=== PATIENT | female | born 1945 | race Caucasian/White ===

== ENCOUNTER 2019-04-03 17:45 | Emergency (ER) | payer OTHER ==
[~2019-04-03] VITALS: Ht 162.6 cm; Wt 54.4 kg
[~2019-04-03 17:45] MED LIST: LEVOTHYROXINE50 MCG PO
--- OUTSIDE RECORDS SUMMARY | 2019-04-03 17:48 | XMS REPORT ---
Author Author [facility] Address Unknown Phone Unavailable Care Team Providers Care Membership Sales Manager Name Role Phone Unavailable Unavailable Payers Payer Name Policy Type Policy Number Effective Date Expiration Date Problems This patient has no known problems. Allergies, Adverse Reactions, Alerts Allergy Name Allergy Type Status Severity Reaction(s) Onset Date Inactive Date Treating Clinician Comments No Known Allergies DA Active U 2019-03-28 00:00:00 Medications This patient has no known medications. Results Test Description Test Time Test Comments Text Results Atomic Results Result Comments BASIC METABOLIC PANEL 2019-03-28 17:23:00 SODIUM (test code=NA) 142 mmol/L 136-145 POTASSIUM (test code=K) 3.9 mmol/L 3.5-5.1 CHLORIDE (test code=CL) 105 mmol/L 101-109 CARBON DIOXIDE (test code=CO2) 28.2 mmol/L 21-32 ANION GAP (test code=GAP) 13 mmol/L 10-20 GLUCOSE (test code=GLU) 89 mg/dL 74-106 BLOOD UREA NITROGEN (test code=BUN) 9 mg/dL 3-21 GLOMERULAR FILTRATION RATE (test code=GFR) 60 mL/min >=60 Estimated GFR by using Modified MDRD formula.Chronic kidney disease is defined as either kidney damageor GFR <60 mL/min/1.73 m2 for >3 months. CREATININE (test code=CREAT) 0.92 mg/dL 0.55-1.3 BUN/CREATININE RATIO (test code=BUN/CREA) 9.8 10-20 CALCIUM (test code=CA) 8.8 mg/dL 8.4-10.2 HEPATIC FUNCTION [id number] 17:23:00* Test Item Value Reference Range Comments TOTAL PROTEIN (test code=PROT) 7.5 g/dL 6.5-8.4 ALBUMIN (test code=ALB) 3.8 g/dL 3.4-4.8 GLOBULIN (test code=GLOB) 3.7 G/DL 1-10 ALBUMIN/GLOBULIN RATIO (test code=A/G) 1.03 RATIO 0.75-1.50 BILIRUBIN TOTAL (test code=BILT) 0.30 mg/dL 0.0-1.0 BILIRUBIN DIRECT (test code=BILD) 0.10 mg/dL 0.0-0.30 SGOT/AST (test code=AST) 22 U/L 6-32 SGPT/ALT (test code=ALT) 22 U/L 12-78 Note: Change in REFERENCE RANGE due to new reagent method. ALKALINE PHOSPHATASE TOTAL (test code=ALKP) 75 U/L 38-126 [id number] 17:23:00* Test Item Value Reference Range Comments LIPASE (test code=LIP) 285 U/L 128-270 [id number] 17:23:00* Test Item Value Reference Range Comments TROPONIN-I (test code=TROPI) <0.015 ng/mL 0.00-0.056 B-TYPE NATRIURETIC [id number] 17:19:00* Test Item Value Reference Range Comments B-TYPE NATRIURETIC PEPTIDE (test code=BNP) 110 pg/mL 0-100 BASIC METABOLIC [id number] 17:15:00* Test Item Value Reference Range Comments SODIUM (test code=NA) 142 mmol/L 136-145 POTASSIUM (test code=K) 3.9 mmol/L 3.5-5.1 CHLORIDE (test code=CL) 105 mmol/L 101-109 CARBON DIOXIDE (test code=CO2) 28.2 mmol/L 21-32 ANION GAP (test code=GAP) 13 mmol/L 10-20 GLUCOSE (test code=GLU) 89 mg/dL 74-106 BLOOD UREA NITROGEN (test code=BUN) 9 mg/dL 3-21 GLOMERULAR FILTRATION RATE (test code=GFR) 60 mL/min >=60 Estimated GFR by using Modified MDRD formula.Chronic kidney disease is defined as either kidney damageor GFR <60 mL/min/1.73 m2 for >3 months. CREATININE (test code=CREAT) 0.92 mg/dL 0.55-1.3 BUN/CREATININE RATIO (test code=BUN/CREA) 9.8 10-20 CALCIUM (test code=CA) 8.8 mg/dL 8.4-10.2 HEPATIC FUNCTION [id number] 17:15:00* Test Item Value Reference Range Comments TOTAL PROTEIN (test code=PROT) gram/dL 6.4-8.2 ALBUMIN (test code=ALB) g/dL 3.4-5.0 GLOBULIN (test code=GLOB) g/dL 2.7-4.2 ALBUMIN/GLOBULIN RATIO (test code=A/G) 0.75-1.50 BILIRUBIN TOTAL (test code=BILT) mg/dL 0.2-1.2 BILIRUBIN DIRECT (test code=BILD) mg/dL 0.0-0.20 SGOT/AST (test code=AST) IUnit/L 15-37 SGPT/ALT (test code=ALT) U/L 10-69 ALKALINE PHOSPHATASE TOTAL (test code=ALKP) IUnit/L 45-117 [id number] 17:15:00* Test Item Value Reference Range Comments LIPASE (test code=LIP) Unit/L 144-286 [id number] 17:15:00* Test Item Value Reference Range Comments TROPONIN-I (test code=TROPI) ng/mL 0-0.045 - XR CHEST 2 [id number] 17:06:00 Name: EDDI CAMPBELL [facility] : 1945 Age/S:74 /F [address] [facility] Unit#:[id number] Loc: [place] [address] Phys: Cuong Barth MD Dis Date: PHONE #: [phone] Status: PRE ER FAX #: [phone] Exam Date: 03/28/2019 Reason: CHEST PAIN EXAMS: CPT CODE: [id number] XR CHEST 2 V 38879 HISTORY: Chest pain. COMPARISON: None available. AP and lateral view of the chest: No acute infiltrates, effusion or congestion. Mild bullous changes in the upper lobes. Cardiac and the mediastinal silhouette are normal. IMPRESSION: No acute infiltrates, effusion or congestion. at 1706 Reported and signed by: Derik Merchant M.D. CC: Cuong Barth MD Technologist: CORNELIUS GUERRERO, RT(R),CT Trnscrpt Data: 03/28/2019 (1706) [email or web address] Orig Print D/T: S: 03/28/2019 (1929) PAGE 1 Signed Report CBC W/O [id number] 17:04:00* Test Item Value Reference Range Comments WHITE BLOOD CELL (test code=WBC) 7.9 K/mm3 4.5-12.5 RED BLOOD CELL (test code=RBC) 4.42 mill/mm3 3.7-5.2 HEMOGLOBIN (test code=HGB) 12.8 gram/dL 11.5-15.5 HEMATOCRIT (test code=HCT) 39.5 % 36.0-46.0 MEAN CELL VOLUME (test code=MCV) 89.4 fL 80-98 MEAN CELL HGB (test code=MCH) 29.0 picogram 27.0-33.0 MEAN CELL HGB CONCETRATION (test code=MCHC) 32.4 gram/dL 33.0-36.0 RED CELL DISTRIBUTION WIDTH (test code=RDW) 13.0 % 11.6-16.2 RED CELL DISTRIBUTION WIDTH SD (test code=RDW-SD) 43.5 fL 37.0-51.0 PLATELET COUNT (test code=PLT) 289 K/mm3 150-450 MEAN PLATELET VOLUME (test code=MPV) 10.1 fL 6.7-11.0 SCR MAMM BILATERAL ERICA CAD [id number] 14:05:43 - SCR MAMM BILATERAL ERICA CAD DIGITALBILATERAL DIGITAL SCREENING MAMMOGRAM 3D/2D WITH CAD: 08/16/2018CLINICAL: Asymptomatic. Digital breast tomosynthesis was performed in addition to routine CC and MLO views. Current mammographic images were evaluated by either a [employer] M-Vu or a e(ye)BRAIN ImageChecker CAD (computer aided detection system). Comparison is made to exams dated 08/12/2017 mammogram, 08/10/2016 mammogram, and 07/26/2015 mammogram - [facility]. T he tissue of both breasts is heterogeneously dense. This may lower the sensitivi ty of mammography. No suspicious mass, architectural distortion, malignant type calcification, or lymph node abnormality detected. Breast architecture is stab le compared to prior exams.IMPRESSION: NEGATIVEThere is no mammographic evidence of malignancy. Resume annual screening mammography in one year. Vernon ashby M.D. ss/penrad:08/19/2018 14:05:43 Rubber Liner: [place] SHRESTHA, [facility] sent: BIRADS 1-2 Normal Mammogram BI-RADS: 1 Negative
--- NOTE | 2019-04-03 18:00 | NUR ---
DR GALICIA AT BEDSIDE FOR RE-EVAL AND DISCUSSING THE CURRENT PLAN OF CARE WITH PATIENT AND FAMILY, VERBALIZED UNDERSTANDING. PATIENT TO BE TRANSFERRED FOR HIGHER LEVEL FOR NEUROSURGERY AND BE TRANSFERRED VIA [facility].
--- NOTE | 2019-04-03 18:06 | NUR ---
INITIATED TRANSFER TO [facility] FOR A HIGHER LEVEL OF CARE, SPOKE WITH SARINA COREAS.
[2019-04-03 18:19] LABS: BASOPHILS # (AUTO) 0.1 (0.0-0.1); BASOPHILS % 1.3 % (0.0-1.0); EOSINOPHILS # (AUTO) 0.4 (0.0-0.4); EOSINOPHILS % 3.8 % (0.0-6.0); LYMPHOCYTES # (AUTO) 2.3 (1.0-3.2); LYMPHOCYTES % 22.9 % (18.0-39.1); MEAN CORPUSCULAR HEMOGLOBIN 29.5 pg (28-32); MEAN CORPUSCULAR HGB CONC 34.1 g/dL (31-35); MEAN CORPUSCULAR VOLUME 86.5 fL (81-99); MONOCYTES # (AUTO) 0.8 (0.2-0.8); MONOCYTES % 8.3 % (4.4-11.3); NEUTROPHILS # (AUTO) 6.3 (2.1-6.9); PLATELET COUNT 312 x10e3/uL (140-360); RED BLOOD COUNT 4.74 x10e6/uL (3.6-5.1); RED CELL DISTRIBUTION WIDTH 13.4 % (11.7-14.4)
--- NOTE | 2019-04-03 18:20 | NUR ---
XRAY AT BEDSIDE FOR CXR.
[2019-04-03 18:30] LABS: INR 0.83; PARTIAL THROMBOPLASTIN TIME 26.4 seconds (23.8-35.5); PROTHROMBIN TIME 11.9 seconds (11.9-14.5)
--- NOTE | 2019-04-03 18:35 | NUR ---
NOTIFIED RADIOLOGY TO MAKE DISC OF DIAGNOSTIC IMAGES.
[2019-04-03 18:39] LABS: ALANINE AMINOTRANSFERASE 37 IU/L (0-55); ALBUMIN 3.9 g/dL (3.5-5.0); ALBUMIN/GLOBULIN RATIO 1.1 (0.8-2.0); ALKALINE PHOSPHATASE 78 IU/L (40-150); ANION GAP 14.5 mmol/L (8-16); BLOOD UREA NITROGEN 11 mg/dL (7-26); BUN/CREATININE RATIO 12 (6-25); CALCIUM 9.6 mg/dL (8.4-10.2); CARBON DIOXIDE 25 mmol/L (22-29); CHLORIDE 98 mmol/L (98-107); CREATINE KINASE 50 IU/L (29-168); EST GLOMERULAR FILTRATION RATE > 60 ML/MIN (60-); GLUCOSE 106 mg/dL (74-118); MAGNESIUM 2.1 MG/DL (1.3-2.1); POTASSIUM 3.5 mmol/L (3.5-5.1); SODIUM 134 mmol/L (136-145)
--- NOTE | 2019-04-03 18:50 | NUR ---
NOTIFIED [facility] FOR AIR TRANSPORT, SPOKE WITH GRABIEL.
--- NOTE | 2019-04-03 18:56 | Diagnostic Imaging Report ---
EXAMINATION: CHEST SINGLE (PORTABLE) COMPARISON: None INDICATION: Abdominal pain ^ABD PAIN ^[id number] ^1820 DISCUSSION: Frontal view of the chest obtained at 1820 hours. HEART AND MEDIASTINUM: The cardiomediastinal silhouette is unremarkable. LINES: None. LUNGS: The lungs are hyperinflated suggestive of small airways disease. No pneumonia or pulmonary edema. PLEURA: No pleural effusion or pneumothorax. BONES AND SOFT TISSUES: No focal osseous lesion. The soft tissues are normal. IMPRESSION: No acute cardiopulmonary disease. Signed by: Dr. Josue Ervin MD on 04/03/2019 6:52 PM
--- NOTE | 2019-04-03 19:00 | NUR ---
[facility] ETA APPROX 12MIN, SPOKE WITH GRABIEL.
--- NOTE | 2019-04-03 19:19 | NUR ---
[facility] ARRIVED IN ER
--- NOTE | 2019-04-03 19:28 | NUR ---
REPORTED CALLED TO [facility], 7 [address] 4 BED 9, SPOKE WITH URIEL HOFFMANN.
== END 2019-04-03 19:47 | disposition other institution (70) ==
LOC: ER 17:45
DX: R51 Headache (principal); I62.00 Nontraumatic subdural hemorrhage, unspecified; K21.9 Gastro-esophageal reflux disease without esophagitis; Z87.442 Personal history of urinary calculi
CPT/HCPCS: 36415; 71045; 80053; 82550; 82553; 83735; 84484; 85025; 85610; 85730; 86850; 86900; 93005; 99284

== ENCOUNTER 2019-04-04 23:32 | Emergency (ER) | payer OTHER ==
[~2019-04-04] VITALS: Ht 162.6 cm; Wt 54.4 kg
--- OUTSIDE RECORDS SUMMARY | 2019-04-04 23:35 | XMS REPORT | Clinical Summary ---
Author Author [facility] Address Unknown Phone Unavailable Care Team Providers Care Dispatcher Tow [employer] Name Role Phone Scot Gutierrez MD PCP Allergies No Known Allergies Medications No known medications Active Problems Problem Noted Date Subarachnoid hemorrhage 04/03/2019 Encounters Care Team Description Date Type Specialty Dylon Ryan MD Subarachnoid hemorrhage (HCC) 04/03/2019 Hospital Intensive Care - Encounter 04/04/2019 04/03/2019 Travel after 04/03/2018 Social History Date Tobacco Use Types Packs/Day Years Used Never Smoker Smokeless Tobacco: Never Used Sex Assigned at Date Recorded Not on file Industry Job Start Date Occupation Not on file Not on file Not on file Travel End Travel History Travel Start No recent travel history available. Last Filed Vital Signs Time Taken Vital Sign Reading 04/04/2019 4:30 PM CDT Blood Pressure 126/61 04/04/2019 4:30 PM CDT Pulse 78 04/04/2019 4:30 PM CDT Temperature 36.7 C (98.1 F) 04/04/2019 4:30 PM CDT Respiratory Rate 18 04/04/2019 4:30 PM CDT Oxygen Saturation 99% - Inhaled Oxygen - Concentration 04/03/2019 8:00 PM CDT Weight 56.3 kg (124 lb 1.9 oz) 04/03/2019 8:00 PM CDT Height 160 cm (5' 3") 04/03/2019 8:00 PM CDT Body Mass Index 21.99 Plan of Treatment Not on file Procedures Comments Procedure Name Priority Date/Time Associated Diagnosis MR BRAIN WITHOUT IV Routine 04/04/2019 CONTRAST 2:30 PM CDT SPIN/CONCENTRATION CHARGE Routine 04/04/2019 10:40 AM CDT AFB CULTURE + SMEAR Routine 04/04/2019 10:[address]/CTA CAROTID Routine 04/04/2019 4:[address]/CTA BRAIN CARMEN 04/04/2019 4:59 AM CDT CBC W/PLT COUNT & AUTO Routine 04/04/2019 DIFFERENTIAL 4:56 AM CDT HEPATIC FUNCTION PANEL Routine 04/04/2019 4:56 AM CDT LIPASE Routine 04/04/2019 4:56 AM CDT AMYLASE Routine 04/04/2019 4:56 AM CDT CBC W/PLT COUNT & AUTO Routine 04/04/2019 DIFFERENTIAL 4:56 AM CDT PHOSPHORUS Routine 04/04/2019 4:56 AM CDT MAGNESIUM Routine 04/04/2019 4:56 AM CDT BASIC METABOLIC PANEL (7) Routine 04/04/2019 4:56 AM CDT XR CHEST 1 VIEW Routine 04/04/2019 PORTABLE/BEDSIDE 3:25 AM CDT CBC W/PLT COUNT & AUTO Routine 04/03/2019 DIFFERENTIAL 10:46 PM CDT PROTHROMBIN TIME/INR Routine 04/03/2019 10:46 PM CDT BASIC METABOLIC PANEL (7) Routine 04/03/2019 10:46 PM CDT CBC W/PLT COUNT & AUTO Routine 04/03/2019 DIFFERENTIAL 10:46 PM CDT after 04/03/2018 Results * MR brain without IV contrast (04/04/2019 2:30 PM CDT) Specimen Narrative Performed At FINAL REPORT [facility] ([place], [place]) MRI Brain without contrast Clinical History: Intracranial hemorrhage Technique: MRI of the brain utilizing axial T2, FLAIR, GRE, DWI; sagittal and coronal T1-weighted images. Comparisons: CT 04/04/2019 Findings: Trace subarachnoid hemorrhage is again seen in the right frontal and temporal sulci. There is no evidence for acute infarction. There are a few small chronic lacunar infarcts of the bilateral basal ganglia. There is mild periventricular and subcortical white matter T2 hyperintensity, which is nonspecific but compatible with chronic microvascular ischemic change. There is mild generalized parenchymal volume loss without hydrocephalus, midline shift, or apparent mass effect. There are no extra-axial fluid collections. The craniocervical junction is preserved. The major intracranial flow-voids appear patent. IMPRESSION: Trace right frontal and temporal subarachnoid hemorrhage is similar appearing. No evidence for acute infarct. Bilateral basal ganglia chronic lacunar infarcts. Signed: Nora Ewing MD Report Verified Date/Time:04/04/2019 14:41:12 Reading Location: [address] Neuro Reading Room Procedure Note Interface, External Ris In - 04/04/2019 2:47 PM CDT FINAL REPORT MRI Brain without contrast Clinical History: Intracranial hemorrhage Technique: MRI of the brain utilizing axial T2, FLAIR, GRE, DWI; sagittal and coronal T1-weighted images. Comparisons: CT 04/04/2019 Findings: Trace subarachnoid hemorrhage is again seen in the right frontal and temporal sulci. There is no evidence for acute infarction. There are a few small chronic lacunar infarcts of the bilateral basal ganglia. There is mild periventricular and subcortical white matter T2 hyperintensity, which is nonspecific but compatible with chronic microvascular ischemic change. There is mild generalized parenchymal volume loss without hydrocephalus, midline shift, or apparent mass effect. There are no extra-axial fluid collections. The craniocervical junction is preserved. The major intracranial flow-voids appear patent. IMPRESSION: Trace right frontal and temporal subarachnoid hemorrhage is similar appearing. No evidence for acute infarct. Bilateral basal ganglia chronic lacunar infarcts. Signed: Nora Ewing MD Report Verified Date/Time: 04/04/2019 14:41:12 Reading Location: [address] Neuro Reading Room Performing Organization Address City/State/Zipcode Phone Number RIS * SPIN/CONCENTRATION CHARGE (04/04/2019 10:40 AM CDT) Concentration charged Done [facility] Specimen Sputum Performing Organization Address City/State/Zipcode Phone Number [facility] [address] [place] [address] [facility] * CTA carotid (04/04/2019 4:59 AM CDT) Specimen Narrative Performed At FINAL REPORT [employer] CLINICAL HISTORY: Intracranial hemorrhage TECHNIQUE: Initially, noncontrast head CT images were performed. Contiguous contrast-enhanced axial images through the neck followed by axial images through the head with coronal and sagittal reformations to assess the arterial circulation. 3-D reconstructions were performed using a volume rendered technique separately on a workstation. This exam was performed according to the departmental dose optimization program which includes automated exposure control, adjustment of the mA and/or kV according to the patient size, and/or use of an iterative reconstruction technique. COMPARISON: None FINDINGS: Scattered subarachnoid hemorrhage within the right frontal and temporal lobes. There is periventricular and subcortical white matter hypodensity which is nonspecific but compatible with chronic microvascular ischemic change. There are atherosclerotic calcifications of the intracranial circulation. There is generalized parenchymal volume loss without hydrocephalus, midline shift, or apparent mass effect. No large territory infarction is identified. Paranasal sinuses and mastoid air cells are clear. Intraorbital contents are unremarkable. The CT angiogram images of the head reveal no evidence of intracranial aneurysm, focal stenosis, or proximal branch vessel occlusion. Vertebral artery terminates in a PICA. The basilar artery is diminutive with origin of the bilateral posterior cerebral arteries. Hypoplastic left A1 anterior cerebral artery. The major intradural venous sinuses are patent. There is no stenosis of the proximal right internal carotid artery by NASCET criteria. There is no stenosis of the proximal left internal carotid artery by NASCET criteria. The vertebral arteries in the neck are patent including their origins. There are dorsal spondylitic changes in the cervical spine. Reversal the normal cervical lordosis. There are scattered subcentimeter lymph nodes in the neck. Soft tissues of the neck are normal. The visualized lung apices are clear.1.5 cm right thyroid hypodense nodule. IMPRESSION: Scattered small volume subarachnoid hemorrhage within the right cerebral hemisphere. No evidence of intracranial aneurysm, focal stenosis, or proximal branch vessel occlusion. No evidence of hemodynamically significant stenosis in the cervical carotid or vertebral arteries by NASCET criteria. 1.5 cm right thyroid hypodense nodule. Recommend further evaluation with dedicated thyroid ultrasound on a nonemergent basis. Signed: Jose Martinez MD Report Verified Date/Time:04/04/2019 05:12:19 Procedure Note Interface, External Ris In - 04/04/2019 5:14 AM CDT FINAL REPORT CLINICAL HISTORY: Intracranial hemorrhage TECHNIQUE: Initially, noncontrast head CT images were performed. Contiguous contrast-enhanced axial images through the neck followed by axial images through the head with coronal and sagittal reformations to assess the arterial circulation. 3-D reconstructions were performed using a volume rendered technique separately on a workstation. This exam was performed according to the departmental dose optimization program which includes automated exposure control, adjustment of the mA and/or kV according to the patient size, and/or use of an iterative reconstruction technique. COMPARISON: None FINDINGS: Scattered subarachnoid hemorrhage within the right frontal and temporal lobes. There is periventricular and subcortical white matter hypodensity which is nonspecific but compatible with chronic microvascular ischemic change. There are atherosclerotic calcifications of the intracranial circulation. There is generalized parenchymal volume loss without hydrocephalus, midline shift, or apparent mass effect. No large territory infarction is identified. Paranasal sinuses and mastoid air cells are clear. Intraorbital contents are unremarkable. The CT angiogram images of the head reveal no evidence of intracranial aneurysm, focal stenosis, or proximal branch vessel occlusion. Vertebral artery terminates in a PICA. The basilar artery is diminutive with origin of the bilateral posterior cerebral arteries. Hypoplastic left A1 anterior cerebral artery. The major intradural venous sinuses are patent. There is no stenosis of the proximal right internal carotid artery by NASCET criteria. There is no stenosis of the proximal left internal carotid artery by NASCET criteria. The vertebral arteries in the neck are patent including their origins. There are dorsal spondylitic changes in the cervical spine. Reversal the normal cervical lordosis. There are scattered subcentimeter lymph nodes in the neck. Soft tissues of the neck are normal. The visualized lung apices are clear. 1.5 cm right thyroid hypodense nodule. IMPRESSION: Scattered small volume subarachnoid hemorrhage within the right cerebral hemisphere. No evidence of intracranial aneurysm, focal stenosis, or proximal branch vessel occlusion. No evidence of hemodynamically significant stenosis in the cervical carotid or vertebral arteries by NASCET criteria. 1.5 cm right thyroid hypodense nodule. Recommend further evaluation with dedicated thyroid ultrasound on a nonemergent basis. Signed: Jose Martinez MD Report Verified Date/Time: 04/04/2019 05:12:19 Performing Organization Address City/State/Zipcode Phone Number TIFFANIE * CTA brain (04/04/2019 4:59 AM CDT) Specimen Narrative Performed At FINAL REPORT [employer] [facility] CLINICAL HISTORY: Intracranial hemorrhage TECHNIQUE: Initially, noncontrast head CT images were performed. Contiguous contrast-enhanced axial images through the neck followed by axial images through the head with coronal and sagittal reformations to assess the arterial circulation. 3-D reconstructions were performed using a volume rendered technique separately on a workstation. This exam was performed according to the departmental dose optimization program which includes automated exposure control, adjustment of the mA and/or kV according to the patient size, and/or use of an iterative reconstruction technique. COMPARISON: None FINDINGS: Scattered subarachnoid hemorrhage within the right frontal and temporal lobes. There is periventricular and subcortical white matter hypodensity which is nonspecific but compatible with chronic microvascular ischemic change. There are atherosclerotic calcifications of the intracranial circulation. There is generalized parenchymal volume loss without hydrocephalus, midline shift, or apparent mass effect. No large territory infarction is identified. Paranasal sinuses and mastoid air cells are clear. Intraorbital contents are unremarkable. The CT angiogram images of the head reveal no evidence of intracranial aneurysm, focal stenosis, or proximal branch vessel occlusion. Vertebral artery terminates in a PICA. The basilar artery is diminutive with origin of the bilateral posterior cerebral arteries. Hypoplastic left A1 anterior cerebral artery. The major intradural venous sinuses are patent. There is no stenosis of the proximal right internal carotid artery by NASCET criteria. There is no stenosis of the proximal left internal carotid artery by NASCET criteria. The vertebral arteries in the neck are patent including their origins. There are dorsal spondylitic changes in the cervical spine. Reversal the normal cervical lordosis. There are scattered subcentimeter lymph nodes in the neck. Soft tissues of the neck are normal. The visualized lung apices are clear.1.5 cm right thyroid hypodense nodule. IMPRESSION: Scattered small volume subarachnoid hemorrhage within the right cerebral hemisphere. No evidence of intracranial aneurysm, focal stenosis, or proximal branch vessel occlusion. No evidence of hemodynamically significant stenosis in the cervical carotid or vertebral arteries by NASCET criteria. 1.5 cm right thyroid hypodense nodule. Recommend further evaluation with dedicated thyroid ultrasound on a nonemergent basis. Signed: Jose Martinez MD Report Verified Date/Time:04/04/2019 05:12:19 Procedure Note Interface, External Ris In - 04/04/2019 5:14 AM CDT FINAL REPORT CLINICAL HISTORY: Intracranial hemorrhage TECHNIQUE: Initially, noncontrast head CT images were performed. Contiguous contrast-enhanced axial images through the neck followed by axial images through the head with coronal and sagittal reformations to assess the arterial circulation. 3-D reconstructions were performed using a volume rendered technique separately on a workstation. This exam was performed according to the departmental dose optimization program which includes automated exposure control, adjustment of the mA and/or kV according to the patient size, and/or use of an iterative reconstruction technique. COMPARISON: None FINDINGS: Scattered subarachnoid hemorrhage within the right frontal and temporal lobes. There is periventricular and subcortical white matter hypodensity which is nonspecific but compatible with chronic microvascular ischemic change. There are atherosclerotic calcifications of the intracranial circulation. There is generalized parenchymal volume loss without hydrocephalus, midline shift, or apparent mass effect. No large territory infarction is identified. Paranasal sinuses and mastoid air cells are clear. Intraorbital contents are unremarkable. The CT angiogram images of the head reveal no evidence of intracranial aneurysm, focal stenosis, or proximal branch vessel occlusion. Vertebral artery terminates in a PICA. The basilar artery is diminutive with origin of the bilateral posterior cerebral arteries. Hypoplastic left A1 anterior cerebral artery. The major intradural venous sinuses are patent. There is no stenosis of the proximal right internal carotid artery by NASCET criteria. There is no stenosis of the proximal left internal carotid artery by NASCET criteria. The vertebral arteries in the neck are patent including their origins. There are dorsal spondylitic changes in the cervical spine. Reversal the normal cervical lordosis. There are scattered subcentimeter lymph nodes in the neck. Soft tissues of the neck are normal. The visualized lung apices are clear. 1.5 cm right thyroid hypodense nodule. IMPRESSION: Scattered small volume subarachnoid hemorrhage within the right cerebral hemisphere. No evidence of intracranial aneurysm, focal stenosis, or proximal branch vessel occlusion. No evidence of hemodynamically significant stenosis in the cervical carotid or vertebral arteries by NASCET criteria. 1.5 cm right thyroid hypodense nodule. Recommend further evaluation with dedicated thyroid ultrasound on a nonemergent basis. Signed: Jose Martinez MD Report Verified Date/Time: 04/04/2019 05:12:19 Performing Organization Address City/State/Zipcode Phone Number GE RIS * CBC with platelet count + automated diff (04/04/2019 4:56 AM CDT) Only the most recent of 2 results within the time period is included. WBC 8.9 3.5 - 10.5 K/L [facility] RBC 3.71 (L) 3.93 - 5.22 M/L [facility] Hemoglobin 11.0 (L) 11.2 - 15.7 GM/DL [facility] Hematocrit 33.1 (L) 34.1 - 44.9 % [facility] MCV 89.2 79.4 - 94.8 fL [facility] MCH 29.6 25.6 - 32.2 pg [facility] MCHC 33.2 32.2 - 35.5 GM/DL [facility] RDW 13.4 11.7 - 14.4 % [facility] Platelets 270 150 - 450 K/CU MM [facility] MPV 10.1 9.4 - 12.3 fL [facility] nRBC 0 0 - 0 /100 WBC [facility] % Neutros 58 % [facility] % Lymphs 27 % [facility] % Monos 10 % [facility] % Eos 4 % [facility] % Baso 1 % [facility] # Neutros 5.20 1.56 - 6.13 K/L [facility] # Lymphs 2.38 1.18 - 3.74 K/L [facility] # Monos 0.90 (H) 0.24 - 0.36 K/L [facility] # Eos 0.32 0.04 - 0.36 K/L [facility] # Baso 0.08 0.01 - 0.08 K/L [facility] Immature 1 0 - 1 % [facility] Granulocytes-Relative [facility] Specimen Blood Performing Organization Address City/State/Zipcode Phone Number [address] * Phosphorus (04/04/2019 4:56 AM CDT) Phosphorus 3.2 2.3 - 4.7 mg/dL [facility] Specimen Blood Performing Organization Address City/[facility] Phone Number [address] * Magnesium (04/04/2019 4:56 AM CDT) Magnesium 1.7 1.6 - 2.6 mg/dL [facility] Specimen Blood Performing Organization Address City/[facility]/Zipcode Phone Number [address] * Lipase (04/04/2019 4:56 AM CDT) Lipase 57 8 - 78 U/L [facility] Specimen Blood Performing Organization Address City/[facility]/Zipcode Phone Number [address] * Amylase (04/04/2019 4:56 AM CDT) Amylase 65 25 - 125 U/L [facility] Specimen Blood Performing Organization Address City/[facility] Phone Number [facility] [address] [place] [address] [facility] * Hepatic function panel (04/04/2019 4:56 AM CDT) Protein, Total 5.5 (L) 6.0 - 8.3 gm/dL [facility] Albumin 3.2 (L) 3.5 - 5.0 g/dL [facility] Total Bilirubin 0.5 0.2 - 1.2 mg/dL [facility] Bilirubin, Direct 0.2 0.1 - 0.5 mg/dL [facility] Alkaline Phosphatase 58 40 - 150 U/L [facility] AST 19 5 - 34 U/L [facility] ALT 22 6 - 55 U/L [facility] Specimen Blood Performing Organization Address [facility] Cent[facility]ode Phone Number [facility] [address] [place] [address] [facility] * Basic Metabolic Panel (04/04/2019 4:56 AM CDT) Only the most recent of 2 results within the time period is included. Sodium 139 136 - 145 meq/L [facility] Potassium 3.8 3.5 - 5.1 meq/L [facility] Chloride 111 (H) 98 - 107 meq/L [facility] CO2 23 22 - 29 meq/L [facility] BUN 9 7 - 21 mg/dL [facility] Creatinine 0.75 0.57 - 1.25 mg/dL [facility] Glucose 86 70 - 105 mg/dL [facility] Calcium 7.4 (L) 8.4 - 10.2 mg/dL [facility] EGFR 75Comment: ESTIMATED GFR IS mL/min/1.73 sq m [facility] NOT ACCURATE CREATININE [facility] CLEARANCE IN PREDICTING GLOMERULAR FILTRATION RATE. ESTIMATED GFR IS NOT APPLICABLE FOR DIALYSIS PATIENTS. Specimen Blood Performing Organization Address City/[facility]/Zipcode Phone Number [facility] [address] [place] [address] [facility] * XR chest 1 view portable / bedside (04/04/2019 3:25 AM CDT) Specimen Narrative Performed At FINAL REPORT [employer] Chest, 1 view. History: Cough Comparison: None available. Findings: Bilateral apices not included on the study. The cardiomediastinal silhouette and pulmonary vasculature are within normal limits for a portable exam. The lungs are clear without evidence of consolidation or effusion.The soft tissues and osseous structures are intact. IMPRESSION: No acute cardiopulmonary abnormality. Signed: Jose Martinez MD Report Verified Date/Time:04/04/2019 03:35:53 Procedure Note Interface, External Ris In - 04/04/2019 3:38 AM CDT FINAL REPORT Chest, 1 view. History: Cough Comparison: None available. Findings: Bilateral apices not included on the study. The cardiomediastinal silhouette and pulmonary vasculature are within normal limits for a portable exam. The lungs are clear without evidence of consolidation or effusion. The soft tissues and osseous structures are intact. IMPRESSION: No acute cardiopulmonary abnormality. Signed: Jose Martinez MD Report Verified Date/Time: 04/04/2019 03:35:53 Performing Organization Address City/[facility]/Zipcode Phone Number [facility] ([place], [place]) * Prothrombin time/INR (04/03/2019 10:46 PM CDT) Protime 13.6 11.9 - 14.2 seconds [facility] INR 1.1 <=5.9 [facility] Specimen Blood Narrative Performed At Effective 03/11/2019: PT Reference Range Change [facility] New: 11.9-14.2Previous: 11.7-14.7 [facility] RECOMMENDED COUMADIN/WARFARIN INR THERAPY RANGES STANDARD DOSE: 2.0-3.0Includes: PROPHYLAXIS for venous thrombosis, systemic embolization; TREATMENT for venous thrombosis and/or pulmonary embolus. HIGH RISK: Target INR is 2.5-3.5 for patients wiht mechanical heart valves. Performing Organization Address City/State/Zipcode Phone Number [facility] [address] [place] [address] [facility] after 04/03/2018 Advance Directives For more information, please contact: [address] [address] Date Inactivated Comments Code Status Date Activated 04/04/2019 8:30 PM Full Code 04/03/2019 10:09 PM This code status was determined by: Patient
[2019-04-05] MEDS ORDERED: SODIUM CHLORIDE 0.9% 1000ML 1,000 ML IV SCH
[2019-04-05] MEDS ORDERED: DIATRIZOATE MEGL/DIATRIZOA SOD 30 ML BTL PO ONE (00:10)
[2019-04-05 00:11] LABS: BILIRUBIN,URINE NEGATIVE (NEGATIVE); CLARITY,URINE CLEAR (CLEAR); COLOR,URINE YELLOW (YELLOW); KETONES,URINE NEGATIVE (NEGATIVE); LEUKOCYTE ESTERASE ,URINE NEGATIVE (NEGATIVE); NITRITE,URINE NEGATIVE (NEGATIVE); PROTEIN,URINE DIPSTICK NEGATIVE (NEGATIVE); URINE UROBILINOGEN 0.2 mg/dL (0.2 - 1)
[2019-04-05 00:27] LABS: BACTERIA,URINE RARE /HPF; EPITHELIAL CELLS,URINE FEW /LPF; RBC,URINE 0-5 /HPF (0-5); WBC,URINE (MAN) 0-5 /HPF (0-5)
[2019-04-05] MEDS ORDERED: TRAZODONE HCL50 MG PO (00:51)
[2019-04-05] MEDS ORDERED: TYLENOL EXTRA500 MG PO (00:51)
[2019-04-05] MEDS ORDERED: BENZONATATE 100 MG CAP PO PRN (01:00)
--- NOTE | 2019-04-05 01:20 | NUR ---
2345 - RECEIVED PT IN TRIAGE AT THIS TIME. PT'S STATES THAT PT WAS SEEN AT AN OUT PT CT AND WAS SENT TO THE HOSPITAL FOR A "BRAIN BLEED". PT WAS LIFE FLIGHTED TO [facility]. PT STATES THAT SHE WAS TOLD THAT THERE WAS NOTHING WRONG WITH HER BRAIN, AND REFUSED A HEAD CT. 0020 - WE WERE CALLED TO CT AT THIS TIME, BECAUSE PT WAS REFUSING THE CT OF THE ABD, DR SWANSON AND MYSELF WAS ABLE TO GET HER TO AGREE TO JUST THE CT ABD. 0120 - PT REFUSED PIV AND BLOOD DRAW AT THIS TIME, UNTIL SHE RECEIVES THE RESULTS OF HER CT. DR SWANSON MADE AWARE.
--- NOTE | 2019-04-05 01:46 | Diagnostic Imaging Report ---
EXAM: CT Abdomen and Pelvis WITHOUT contrast INDICATION: ^abdominal pain ^[id number] ^[id number] COMPARISON: None. TECHNIQUE: Abdomen and pelvis were scanned utilizing a multidetector helical scanner from the lung base to the pubic symphysis without administration of IV contrast. Absence of intravenous contrast decreases sensitivity for detection of focal lesions and vascular pathology. Coronal and sagittal reformations were obtained. Routine protocol was performed. IV CONTRAST: None ORAL CONTRAST: None. COMPLICATIONS: None RADIATION DOSE: Total DLP: 203.87 mGy*cm Estimated effective dose: (DLP x 0.015 x size factor) mSv CTDIvol has been reviewed. It is below the limits set by the Radiation Protocol Committee (RPC). FINDINGS: LINES and TUBES: None. LOWER THORAX: Unremarkable HEPATOBILIARY: Unenhanced liver is unremarkable. No biliary ductal dilation. GALLBLADDER: Vicarious excretion of contrast into the gallbladder lumen. No radio-opaque stones. No wall thickening. SPLEEN: No splenomegaly. PANCREAS: No focal masses or ductal dilatation. ADRENALS: Bilateral adrenal nodules, measuring 1.9 cm on the left side and 1.3 cm on right with internal density less than 10 Hounsfield units, representing adenomas. KIDNEYS/URETERS: No hydronephrosis. Limited for evaluation of renal parenchyma without intravenous contrast. No stones. GI TRACT: No abnormal distention, wall thickening, or evidence of bowel obstruction. Oral contrast is seen within colon, from prior study. Appendix is not visualized. PELVIC ORGANS/BLADDER: Unremarkable. Contrast within bladder. LYMPH NODES: No lymphadenopathy. VESSELS: Unremarkable. PERITONEUM / RETROPERITONEUM: No free air or fluid. BONES: Generalized demineralization. Age indeterminate L2 and T11 vertebral body compression deformities. SOFT TISSUES: Left breast calcification. IMPRESSION: 1. No definite evidence of acute inflammatory process in the abdomen/pelvis, considering limitations of unenhanced study. 2. Age indeterminate T11 and L2 vertebral body compression deformities. Signed by: Dr. Les Landry MD on 04/05/2019 1:43 AM
[2019-04-05 02:20] VITALS: BP 129/71
== END 2019-04-05 02:45 | disposition home or self-care (01) ==
LOC: ER 23:32
DX: R10.84 Generalized abdominal pain (principal); R11.0 Nausea
CPT/HCPCS: 74176; 81001; 99282

== ENCOUNTER 2021-01-03 00:37 | Emergency (ER) | payer MEDICARE, OTHER ==
[~2021-01-03] VITALS: Ht 162.6 cm; Wt 54.4 kg
[~2021-01-03 00:37] MED LIST changes: +TRAZODONE HCL50 MG PO; +TYLENOL EXTRA500 MG PO
[2021-01-03] MEDS ORDERED: ONDANSETRON HCL INJ 2MG/ML 2ML 2 MG/ML VIAL IV STA (01:09)
[2021-01-03] MEDS ORDERED: SODIUM CHLORIDE 0.9% 1000ML 1,000 ML IV SCH (01:15)
[2021-01-03] MEDS ORDERED: MORPHINE SULFATE INJ 4 MG/ML INJ 1ML IV ONE (01:15)
[2021-01-03] MEDS ORDERED: ASPIRIN 81 MG CHEW TAB PO ONE (01:15)
[2021-01-03 02:26] LABS: BASOPHILS # (AUTO) 0.1 (0.0-0.1); BASOPHILS % 0.7 % (0.0-1.0); EOSINOPHILS # (AUTO) 0.2 (0.0-0.4); EOSINOPHILS % 1.4 % (0.0-6.0); HEMATOCRIT 40.7 % (34.2-44.1); HEMOGLOBIN 13.4 g/dL (12.0-16.0); LYMPHOCYTES # (AUTO) 1.7 (1.0-3.2); LYMPHOCYTES % 15.9 % (18.0-39.1); MEAN CORPUSCULAR HEMOGLOBIN 29.5 pg (28-32); MEAN CORPUSCULAR HGB CONC 32.9 g/dL (31-35); MEAN CORPUSCULAR VOLUME 89.5 fL (81-99); MONOCYTES # (AUTO) 0.9 (0.2-0.8); MONOCYTES % 8.4 % (4.4-11.3); NEUTROPHILS # (AUTO) 7.6 (2.1-6.9); NEUTROPHILS % 73.1 % (38.7-80.0); PLATELET COUNT 221 x10e3/uL (140-360); RED BLOOD COUNT 4.55 x10e6/uL (3.6-5.1); RED CELL DISTRIBUTION WIDTH 13.9 % (11.7-14.4)
[2021-01-03 02:46] LABS: ALBUMIN 3.9 g/dL (3.5-5.0); ALBUMIN/GLOBULIN RATIO 1.1 (0.8-2.0); ANION GAP 15.7 mmol/L (8-16); CALCIUM 8.9 mg/dL (8.4-10.2); CREATININE, SERUM 0.98 mg/dL (0.57-1.11); POTASSIUM 3.7 mmol/L (3.5-5.1)
[2021-01-03 02:53] LABS: CREATINE KINASE MB 0.5 ng/mL (0-5.0)
[2021-01-03 03:27] LABS: CLARITY,URINE CLEAR (CLEAR); COLOR,URINE YELLOW (YELLOW)
[2021-01-03 03:28] LABS: BACTERIA,URINE FEW /HPF; EPITHELIAL CELLS,URINE FEW /LPF; KETONES,URINE NEGATIVE (NEGATIVE); LEUKOCYTE ESTERASE ,URINE TRACE (NEGATIVE); NITRITE,URINE NEGATIVE (NEGATIVE); PROTEIN,URINE DIPSTICK NEGATIVE (NEGATIVE); RBC,URINE 0-5 /HPF (0-5); TRANSITIONAL EPI CELLS,URINE MODERATE; URINE UROBILINOGEN 0.2 mg/dL (0.2 - 1)
[2021-01-03] MEDS ORDERED: TYLENOL # 31 EA PO (05:10)
[2021-01-03] MEDS ORDERED: VALIUM2 MG PO (05:10)
[2021-01-03] MEDS ORDERED: FENTANYL CITRATE/PF 100MCG/2 ML INJ IV ONE (05:15)
[2021-01-03] MEDS ORDERED: ONDANSETRON HCL INJ 2MG/ML 2ML 2 MG/ML VIAL ONE (05:38)
== END 2021-01-03 06:51 | disposition home or self-care (01) ==
LOC: ER 00:58
DX: R10.31 Right lower quadrant pain (principal); R19.09 Other intra-abdominal and pelvic swelling, mass and lump; K21.9 Gastro-esophageal reflux disease without esophagitis; E03.9 Hypothyroidism, unspecified; Z87.442 Personal history of urinary calculi
CPT/HCPCS: 36415; 74176; 80053; 81001; 82550; 82553; 84484; 85025; 99284; J2405; J3010; J7030